=== PATIENT | female | born 1995 | race Caucasian/White ===

== ENCOUNTER 2017-06-05 03:09 | Emergency (ER) | payer OTHER ==
--- NOTE | 2017-06-05 03:36 | EDPHY ---
H & P Stated Complaint: sob HPI/ROS: HPI The patient presents with an episode of shortness of breath which is now resolved. She was out drinking alcohol tonight, approximately 3 alcoholic drinks. She returned home about 1 hour ago and had acute onset of shortness of breath which she describes as shallow respirations followed by 1 deep breath. She felt panicked during that time. She also was shivering. This lasted for 5 minutes and then improved on its own. She has history of panic attacks, however says this felt different somehow. She did not have any chest pain, cough, wheezing. She says she has a history of dehydration requiring 5 ER visits in the past. She also believe she may have liver failure from taking Adderall for 6 years. She is currently not on Adderall and denies any other drug use. REVIEW OF SYSTEMS Constitutional: No fever, no chills. Eyes: No discharge. ENT: No sore throat. Cardiovascular: No chest pain, no palpitations. Respiratory: No cough, positive for shortness of breath. Gastrointestinal: No abdominal pain, no vomiting. Genitourinary: No hematuria. Musculoskeletal: No back pain. Skin: No rashes. Neurological: No headache. PMHx: Healthy Soc Hx: college student FHx: Adopted PHYSICAL General Appearance: Alert, no distress Eyes: Pupils equal and round no pallor or injection ENT, Mouth: Mucous membranes moist Respiratory: There are no retractions, lungs are clear to auscultation Cardiovascular: Regular rate and rhythm Gastrointestinal: Abdomen is soft and non-tender, no masses, bowel sounds normal Neurological: A&O, moves all extremities Skin: Warm and dry, no rashes Musculoskeletal: Neck is supple non tender Extremities: symmetrical, full range of motion Psychiatric: Patient is oriented X 3, there is no agitation Source: Patient, EMS - Personal History LMP (Females 10-55): IUD In Place Current Tetanus/Diphtheria Vaccine: Yes Current Tetanus Diphtheria and Acellular Pertussis (TDAP): Yes - Medical/Surgical History Hx Asthma: No Hx Chronic Respiratory Disease: No Hx Diabetes: No Hx Cardiac Disease: No Hx Renal Disease: No Hx Cirrhosis: No Hx Alcoholism: No Hx HIV/AIDS: No Hx Splenectomy or Spleen Trauma: No Other PMH: toe surgery - Social History Smoking Status: Never smoked Constitutional: Initial Vital Signs Temperature (C) 36.6 C 06/05/17 03:10 Heart Rate 80 06/05/17 03:10 Respiratory Rate 17 06/05/17 03:10 Blood Pressure 107/81 H 06/05/17 03:10 O2 Sat (%) 97 06/05/17 03:10 O2 Delivery Mode Room Air Allergies/Adverse Reactions: acetaminophen [From Percocet] Allergy (Verified 06/05/17 03:28) oxycodone [From Percocet] Allergy (Verified 06/05/17 03:28) Home Medications: Medication Instructions Recorded NK [No Known Home Meds] 06/05/17 Medical Decision Making Differential Diagnosis: This is a 22-year-old female who is brought in by ambulance for an episode of shortness of breath which is now resolved. On exam, she is well-appearing, with normal vital signs, mildly intoxicated. I have considered pulmonary embolism, however she is PERC negative. Asthma exacerbation or pneumonia are also a consideration, however her lungs sound clear currently. Panic attack is also a possibility. In the emergency department, the patient was monitored for about an hour without any recurrence of her symptoms. She felt well enough to go home and was discharged. Departure - Departure Disposition: Home, Routine, Self-Care Condition: Good Instructions: Dyspnea (ED) Additional Instructions: Please return to the emergency room if your worse in any way, otherwise you can follow up with your regular treating physician. Referrals: VALENTIN Melgoza,. [Clinic] - As per Instructions
[2017-06-05 04:50] VITALS: BP 94/47; PULSE 88; RESP 16; TEMP 97.7; O2SAT 96
== END 2017-06-05 04:51 | disposition home or self-care (01) ==
LOC: EDUNIT#
DX: R06.02 Shortness of breath (principal); F10.929 Alcohol use, unspecified with intoxication, unspecified